=== PATIENT | male | born 1945 | race Caucasian/White ===

== ENCOUNTER 2020-12-18 09:11 | Emergency (ER) | payer MEDICARE, OTHER ==
--- NOTE | 2020-12-18 09:47 | EDM.PDOC ---
ED HPI GENERAL MEDICAL PROBLEM - General Chief Complaint: Lower Extremity Injury/Pain Stated Complaint: FOOT PAIN Time Seen by Provider: 12/18/20 09:30 Source of Information: Reports: Patient History Limitations: Reports: No Limitations - History of Present Illness INITIAL COMMENTS - FREE TEXT/NARRATIVE: Patient comes emergency department today from home with complaints of worsening left foot pain. This patient has chronic diabetic neuropathy in his bilateral feet. He is on Lyrica 75 mg p.o. 3 times daily. His neuropathy pain gets worse every 3 to 4 weeks over the past 6 to 7 months. Over the past 5 days it has been unrelenting in his left foot and he has been unable to sleep at night. He has had no recent falls trauma or injury to his right foot. It is a constant throbbing burning searing type pain on the left mid forefoot. He contacted his primary care provider today who said to go to the emergency department. He is able to ambulate. He is able to tolerate the pain during the day but he just cannot sleep and he is getting to the point where he needs some sleep. He has no history of gout or other problems to his lower extremities. - Related Data Allergies Allergy/AdvReac Type Severity Reaction Status Date / Time bacitracin Allergy Cannot Verified 12/18/20 09:27 [From Neosporin Remember ([id number])] neomycin Allergy Cannot Verified 12/18/20 09:27 [From Neosporin Remember ([id number])] polymyxin B Allergy Cannot Verified 12/18/20 09:27 [From Neosporin Remember ([id number])] Home Meds: Home Meds Donepezil HCl [Aricept] 10 mg PO BEDTIME 12/18/20 [History] Esomeprazole [NexIUM] 40 mg PO BID 12/18/20 [History] FLUoxetine HCl [Prozac] 20 mg PO DAILY 12/18/20 [History] Furosemide [Lasix] 40 mg PO DAILY 12/18/20 [History] Hydrocodone/Acetaminophen [HYDROcodone-Acetaminophen 10-325 MG] 1 each PO BEDTIME #15 tablet 12/18/20 [Rx] Pregabalin [Lyrica] 100 mg PO TID 12/18/20 [History] Sertraline [Zoloft] 100 mg PO DAILY 12/18/20 [History] Simvastatin [Zocor] 10 mg PO BEDTIME 12/18/20 [History] Tamsulosin HCl [Flomax] 0.4 mg PO DAILY 12/18/20 [History] amLODIPine Besylate [Amlodipine Besylate] 10 mg PO DAILY 12/18/20 [History] lisinopriL [Lisinopril] 2.5 mg PO DAILY 12/18/20 [History] metFORMIN HCl [Metformin HCl] 1,000 mg PO BID 12/18/20 [History] Review of Systems - Review of Systems Review Of Systems: Comprehensive ROS is negative, except as noted in HPI. ED EXAM, GENERAL - Physical Exam Exam: See Below Exam Limited By: No Limitations General Appearance: Alert, WD/WN, No Apparent Distress Respiratory/Chest: No Respiratory Distress Cardiovascular: Normal Peripheral Pulses Peripheral Pulses: 1+: Posterior Tibial (L), Posterior Tibial (R), Dorsalis Pedis (L), Dorsalis Pedis (R) Extremities: No: Normal Inspection (His bilateral lower extremities are covered with lichenification. His left foot there is no erythema induration swelling no overt bony deformity. There is no area of overt tenderness. There is no redness swelling injection. Really the exam is unremarkable. He has no edema to either lower extrem) Neurological: Alert, Oriented Psychiatric: Normal Affect Skin Exam: Warm, Dry, Intact, Normal Color, No Rash Course - Vital Signs Last Recorded V/S: Last Vital Signs Temp 98.4 F 12/18/20 09:16 Pulse 71 12/18/20 09:16 Resp 18 12/18/20 09:16 BP 151/69 H 12/18/20 09:16 Pulse Ox 95 12/18/20 09:16 - Re-Assessments/Exams Free Text/Narrative Re-Assessment/Exam: I had a rather long discussion with this patient about his diabetic neuropathy in his leg. His blood sugars of been appropriate in the 120s to 140 he reports that he checks them on a daily basis. I do not feel that there is any need for x-ray at this time as he has had no recent trauma or injury. This is a chronic condition that is just slowly gotten out of control. I would like to increase his Lyrica 200 mg p.o. 3 times daily although looking in his chart it appears that they have already sent a prescription for this to his pharmacy but he has not picked it up yet. Until that time we will give him some hydrocodone 320 5/2 to 1 tablet at bedtime to help with sleep. Caution sedation. Do not take with any other Tylenol. Hopefully this will help with the sleep until the Lyrica gets to therapeutic level. Discharge instructions as below are explained to the patient he was comfortable this plan his questions were answered. 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 Contact your pharmacy to get the medication from them. Until you get to better control with the Lyrica. Hydrocodone, 1/2-1 tab at bedtime to help with pain and sleep. Caution sedation. Do not take with other Tylenol as it has this Tylenol in it. Return to the ED if new or worsening symptoms. Follow up with PCP by phone after 2 weeks of the Lyrica increased dose. Sepsis Event Note (ED) - Focused Exam Vital Signs: Vital Signs Temp Pulse Resp BP Pulse Ox 12/18/20 09:16 98.4 F 71 18 151/69 H 95
== END 2020-12-18 10:44 | disposition home or self-care (01) ==
LOC: VM.ED 09:11
DX: G62.9 Polyneuropathy, unspecified (principal); E08.9 Diabetes mellitus due to underlying condition without complications; Z88.1 Allergy status to other antibiotic agents; Z79.84 Long term (current) use of oral hypoglycemic drugs; Z79.899 Other long term (current) drug therapy
CPT/HCPCS: 99283; 99284